=== PATIENT | male | born 1955 | race Caucasian/White ===

== ENCOUNTER → 2016-06-01 | Outpatient (CLI) | payer BC ==
[~2016-06-01] MED LIST: ADVAIR 250/28 DISKU1; FLUTICASON0.05 MG/AC NS; OMEPRAZOLE40 MG PO; ULTRAM50 M1 PO
[2016-06-01 10:04] VITALS: BP 139/96
== END ==
LOC: AMSURD 09:39
DX: Z80.42 Family history of malignant neoplasm of prostate (principal); Z13.1 Encounter for screening for diabetes mellitus; Z82.3 Family history of stroke

== ENCOUNTER → 2016-06-02 | Outpatient (CLI) | payer BC ==
[2016-06-02 18:07] VITALS: BP 141/96
== END ==
LOC: AMSURD 17:02
DX: R06.09 Other forms of dyspnea (principal); R00.1 Bradycardia, unspecified

== ENCOUNTER → 2016-06-10 | Outpatient (CLI) | payer BC | LOC: CARDREHAB 08:48 | DX: R06.09 Other forms of dyspnea (principal); R00.1 Bradycardia, unspecified | CPT/HCPCS: A9500 ==

== ENCOUNTER → 2016-09-01 | Outpatient (CLI) | payer BC ==
[2016-06-02 18:07] VITALS: BP 141/96
== END ==
LOC: RAD 09:06
DX: R05 Cough (principal); J45.909 Unspecified asthma, uncomplicated

== ENCOUNTER → 2017-10-26 | Outpatient (CLI) | payer BC ==
[2016-06-02 18:07] VITALS: BP 141/96
[2017-10-26 11:04] LABS: ALBUMIN 4.4 g/dL (3.5-5.0); CALCIUM 9.2 mg/dL (8.4-10.2); POTASSIUM 4.7 mmol/L (3.6-5.0); TOTAL BILIRUBIN 1.5 mg/dL (0.2-1.3); TOTAL PROTEIN 7.9 g/dL (6.3-8.2)
[2017-10-29 09:41] LABS: DIRECT BILIRUBIN 0.3 mg/dL (0.0-0.4)
== END ==
LOC: LAB 10:31
PROVIDERS: Family Medicine
DX: I10 Essential (primary) hypertension (principal); K21.9 Gastro-esophageal reflux disease without esophagitis; R06.83 Snoring; J45.998 Other asthma; M25.569 Pain in unspecified knee; G89.29 Other chronic pain; D12.6 Benign neoplasm of colon, unspecified

== ENCOUNTER → 2017-11-30 | Outpatient (CLI) | payer BC ==
[2016-06-02 18:07] VITALS: BP 141/96
[2017-11-30 10:54] LABS: ALBUMIN 4.3 g/dL (3.5-5.0); CALCIUM 9.2 mg/dL (8.4-10.2); DIRECT BILIRUBIN 0.3 mg/dL (0.0-0.4); POTASSIUM 4.2 mmol/L (3.6-5.0); TOTAL BILIRUBIN 1.5 mg/dL (0.2-1.3); TOTAL PROTEIN 7.3 g/dL (6.3-8.2)
== END ==
LOC: LAB 10:23
PROVIDERS: Family Medicine
DX: E80.7 Disorder of bilirubin metabolism, unspecified (principal); R79.9 Abnormal finding of blood chemistry, unspecified

== ENCOUNTER → 2020-07-28 | Outpatient (CLI) | payer BC ==
[2016-06-02 18:07] VITALS: BP 141/96
== END ==
LOC: RAD 08:00
DX: R17 Unspecified jaundice (principal)

== ENCOUNTER → 2022-01-11 | Outpatient (CLI) | payer BC | LOC: RAD 12:47 | DX: R60.0 Localized edema (principal); M79.605 Pain in left leg ==